=== PATIENT | male | born 1960 | race Caucasian/White ===

== ENCOUNTER 2022-01-25 15:27 | Emergency (ER) | payer OTHER, SELFPAY ==
[2022-01-25 15:34] VITALS: BP 121/72; PULSE 57; RESP 20; TEMP 36.8; O2SAT 98
[2022-01-25 15:40] VITALS: BP 121/72; PULSE 57; RESP 20; TEMP 36.8; O2SAT 98
--- NOTE | 2022-01-25 15:47 | ED.EAR ---
HPI - Ear Problem General Chief complaint: Ear Stated complaint: Ear Pain Time Seen by Provider: 01/25/22 15:47 Source: patient Mode of arrival: ambulatory Limitations: no limitations History of Present Illness HPI Narrative: 61 y/o male presented for c/o left ear x1 week. Pain started as piercing intermittent pain with swelling the day after using a tooth pick to scratch the inside of the ear. Denies immediate pain at that time. Denies tinnitus, muffled/loss of hearing, drainage, fever or dizziness. Taking motrin for pain. MD Complaint: ear pain Related Data Home Medications Medication Instructions Recorded Confirmed rosuvastatin 10 mg tablet 10 mg PO DAILY 01/25/22 01/25/22 Allergies Allergy/AdvReac Type Severity Reaction Status Date / Time No Known Allergies Allergy Verified 01/25/22 15:40 Review of Systems Review of Systems: CONSTITUTIONAL: Denies malaise, chills, or fever. EYES: Denies visual changes, redness, or discharge. ENT: Denies rhinorrhea, congestion, sinus pain, and sore throat. Reports ear pain CARDIOVASCULAR: Denies chest pain, palpitations, or edema. RESPIRATORY: Denies cough or dyspnea. GASTROINTESTINAL: Denies abdominal pain, nausea, vomiting, diarrhea NEUROLOGIC: Denies headache. All systems reviewed & are unremarkable except as noted in HPI and below PMFSH Comments At time of signature, agree with nursing past medical, surgical, social and family history. There is no relevant family history pertinent to the presenting complaint Exam Narrative: GENERAL: Well-appearing EYES: conjunctivae clear ENT: Nares clear. Mucous membranes moist. TMs with dull light reflex and purulent fluid levels bilaterally, canals erythematous and swollen bilaterally; no tragal tenderness. Oropharynx not erythematous without lesions. Tonsils not enlarged and without exudate, no drooling, no hoarseness, no trismus, uvula midline. NECK: Supple. No lymphadenopathy CHEST: Clear to auscultation, breath sounds equal. HEART: Regular rate and rhythm. No murmur heard. Course Course Emergency Course: Patient is aware of diagnosis, understands and agrees to treatment plan. Anticipatory guidance given. Patient agrees to follow-up as directed and is aware of reasons to seek care at the emergency department. Portions of this record may have been created with voice recognition software Level of Care: Express Care Visit Vital Signs Vital signs: Vital Signs Temperature 98.3 F 01/25/22 15:34 Pulse Rate 57 L 01/25/22 15:34 Respiratory Rate 20 01/25/22 15:34 Blood Pressure 121/72 01/25/22 15:34 Pulse Oximetry 98 01/25/22 15:34 Oxygen Delivery Room Air 01/25/22 15:34 Temperature 98.3 F 01/25/22 15:40 Pulse Rate 57 L 01/25/22 15:40 Respiratory Rate 20 01/25/22 15:40 Blood Pressure 121/72 01/25/22 15:40 Pulse Oximetry 98 01/25/22 15:40 Oxygen Delivery Room Air 01/25/22 15:40 Reviewed Medical Decision Making MDM Narrative Medical decision making narrative: Advised supportive measures and signs/symptoms to go to the ER. Pt is appropriate for outpt treatment and f/u. Patient is non-toxic appearing and is in no distress. Differential Diagnosis Differential Diagnosis: Coronavirus, strep pharyngitis, allergic rhinitis, upper respiratory tract infection, sinusitis, rhinosinusitis, nasopharyngitis, viral pharyngitis, otitis media, otitis externa, eustachian tube dysfunction, foreign body, cerumen impaction. Vital Signs Vital Signs: Vital Signs Temperature 98.3 F 01/25/22 15:34 Pulse Rate 57 L 01/25/22 15:34 Respiratory Rate 20 01/25/22 15:34 Blood Pressure 121/72 01/25/22 15:34 Pulse Oximetry 98 01/25/22 15:34 Oxygen Delivery Room Air 01/25/22 15:34 Temperature 98.3 F 01/25/22 15:40 Pulse Rate 57 L 01/25/22 15:40 Respiratory Rate 20 01/25/22 15:40 Blood Pressure 121/72 01/25/22 15:40 Pulse Oximetry 98 01/25/22 15:40 Oxygen Delivery
== END 2022-01-25 16:00 | disposition home or self-care (01) ==
PROVIDERS: Emergency Provider Nurse Practitioner Family; PCP Family Medicine
DX: H66.003 Acute suppurative otitis media without spontaneous rupture of ear drum, bilateral (principal); E78.00 Pure hypercholesterolemia, unspecified
CPT/HCPCS: 99213; G0463